=== PATIENT | male | born 1995 | race Caucasian/White ===

== ENCOUNTER 2017-05-05 11:12 | Emergency (ER) | payer SELFPAY ==
[~2017-05-05 11:12] MED LIST: Z.0.NO CURRENT MEDS
[2017-05-05 11:13] VITALS: BP 135/80; PULSE 57; RESP 24; TEMP 97.5; O2SAT 100
--- NOTE | 2017-05-05 11:30 | PD ---
Physical Exam Time Seen by Provider: 11:28 Narrative 22 y/o male complaining of epigastric/chest pain for the past few days. Complains of nausea and SOB today. Vital signs reviewed. Seen at triage desk. Awaiting bed placement. Data Data Last Documented VS Vital Signs Date Time Temp Pulse Resp B/P Pulse Ox O2 Delivery O2 Flow Rate FiO2 05/05/17 11:13 97.5 57 24 135/80 100 Room Air [facility] Medical Record Reviewed: Yes Supervised Visit with STEPHEN: Artem Whitaker May 05, 2017 11:30
--- NOTE | 2017-05-05 12:37 | PD ---
HPI Chief Complaint: Chest Pain Time Seen by Provider: 12:20 Travel History International Travel<30 days: No Contact w/Intl Traveler<30days: No Traveled to known affect area: No History of Present Illness HPI 22-year-old male came to the emergency room with history of epigastric pain. Patient says the pain has been going on for 3-4 days. He seems uncomfortable. Patient says he drinks alcohol occasionally and he drank 2 beers last night. Upon asking he said he also did marijuana and cocaine. It did not change the level of his pain. His vital signs are stable. He says he has been nauseous and dry heaving. The pain is sharp and occasionally radiates to the right upper quadrant area. Patient has never had pain like this in the past. He has been constipated mostly but had a bowel movement today and the stool color was much reconditioner than usual. [facility] Past Medical History Narrative Medical List of his past medical, surgical, social and family history is reviewed from the nursing note. ADHD: No Cancer: No Cardiovascular Problems: No Diabetes: No Diminished Hearing: No Genitourinary: No Headaches: Yes (OCCASIONAL HEADACHES) Musculoskeletal: No Neurologic: No Psychiatric: Yes Reproductive: No Respiratory: No Migraines: No Seizures: No Thyroid Disease: No Ulcer: No Past Surgical History Surgical History: No Previous Surgery Appendectomy: No Section: No Cholecystectomy: No Other Surgery: No Social History Alcohol Use: Yes (OCC) Tobacco Use: Yes Substance Use: Yes (MARIJUNANA - COCAINE) Allergies-Medications (Allergen,Severity, Reaction): Coded Allergies: No Known Allergies (Verified , 05/05/17) Comments No known drug allergies. Reported Meds & Prescriptions Reported Meds & Active Scripts Active Zofran Odt (Ondansetron Odt) 4 Mg Tab 4 Mg SL Q6HR PRN Omeprazole 20 Mg Tab 20 Mg PO DAILY Reported No Current Meds (Miscellaneous Medication) Misc Narrative Medication List of his home medications reviewed from the nursing note. Review of Systems Except as stated in HPI: all other systems reviewed are Neg Physical Exam Narrative GENERAL: Awake, alert, disheveled, poor skin hygiene, moderate distress SKIN: Focused skin assessment warm/dry. HEAD: Atraumatic. Normocephalic. EYES: Pupils equal and round. No scleral icterus. No injection or drainage. ENT: No nasal bleeding or discharge. Mucous membranes pink and moist. NECK: Trachea midline. No JVD. CARDIOVASCULAR: Regular rate and rhythm. No murmur appreciated. RESPIRATORY: No accessory muscle use. Clear to auscultation. Breath sounds equal bilaterally. GASTROINTESTINAL: Abdomen soft, epigastric tenderness on deep palpation, nondistended. Hepatic and splenic margins not palpable. MUSCULOSKELETAL: No obvious deformities. No clubbing. No cyanosis. No edema. NEUROLOGICAL: Awake and alert. No obvious cranial nerve deficits. Motor grossly within normal limits. Normal speech. PSYCHIATRIC: Appropriate mood and affect; insight and judgment normal. Data Data Last Documented VS Vital Signs Date Time Temp Pulse Resp B/P Pulse Ox O2 Delivery O2 Flow Rate FiO2 05/05/17 12:56 100 Room Air 05/05/17 12:56 14 05/05/17 11:13 97.5 57 135/80 Orders Electrocardiogram (05/05/17 12:40) Complete Blood Count With Diff (05/05/17 12:40) Comprehensive Metabolic Panel (05/05/17 12:40) Magnesium (Mg) (05/05/17 12:40) Prothrombin Time / Inr (Pt) (05/05/17 12:40) Troponin I (05/05/17 12:40) Lipase (05/05/17 12:40) Chest, Single Ap (05/05/17 12:40) Ecg Monitoring (05/05/17 12:40) Bilateral Bp Monitoring (05/05/17 12:40) Iv Access Insert/Monitor (05/05/17 12:40) Oximetry (05/05/17 12:40) Oxygen Administration (05/05/17 12:40) Sodium Chloride 0.9% Flush (Ns Flush) (05/05/17 12:45) Ed Poc Ultrasound (05/05/17 12:40) Sodium Chlor 0.9% 1000 Ml Inj (Ns 1000 M (05/05/17 12:45) Pantoprazole Inj (Protonix Inj) (05/05/17 12:45) Ondansetron Inj (Zofran Inj) (05/05/17 12:45) Labs Laboratory Tests Test 05/05/17 12:50 White Blood Count 9.2 TH/MM3 Red Blood Count 4.58 MIL/MM3 Hemoglobin 14.9 GM/DL Hematocrit 43.4 % Mean Corpuscular Volume 94.9 FL Mean Corpuscular Hemoglobin 32.7 PG Mean Corpuscular Hemoglobin 34.4 % Concent Red Cell Distribution Width 13.7 % Platelet Count 272 TH/MM3 Mean Platelet Volume 7.9 FL Neutrophils (%) (Auto) 67.8 % Lymphocytes (%) (Auto) 20.8 % Monocytes (%) (Auto) 7.5 % Eosinophils (%) (Auto) 3.0 % Basophils (%) (Auto) 0.9 % Neutrophils # (Auto) 6.2 TH/MM3 Lymphocytes # (Auto) 1.9 TH/MM3 Monocytes # (Auto) 0.7 TH/MM3 Eosinophils # (Auto) 0.3 TH/MM3 Basophils # (Auto) 0.1 TH/MM3 CBC Comment DIFF FINAL Differential Comment Prothrombin Time 11.2 SEC Prothromb Time International 1.0 RATIO Ratio Sodium Level 137 MEQ/L Potassium Level 4.2 MEQ/L Chloride Level 103 MEQ/L Carbon Dioxide Level 27.3 MEQ/L Anion Gap 7 MEQ/L Blood Urea Nitrogen 17 MG/DL Creatinine 1.01 MG/DL Estimat Glomerular Filtration 91 ML/MIN Rate Random Glucose 87 MG/DL Calcium Level 9.2 MG/DL Magnesium Level 2.2 MG/DL Total Bilirubin 0.4 MG/DL Aspartate Amino Transf 23 U/L (AST/SGOT) Alanine Aminotransferase 24 U/L (ALT/SGPT) Alkaline Phosphatase 76 U/L Troponin I LESS THAN 0.02 NG/ML Total Protein 7.5 GM/DL Albumin 4.0 GM/DL Lipase 116 U/L MDM Medical Decision Making Medical Screen Exam Complete: Yes Emergency Medical Condition: Yes Medical Record Reviewed: Yes Interpretation(s) Twelve-lead EKG was reviewed by me. Normal sinus rhythm, normal axis, bradycardia, nonspecific ST-T wave changes. Heart rate of 43 bpm. Differential Diagnosis Acute pancreatitis, acute cholecystitis, ACS, acute gastritis, PUD Narrative Course 12:57 PM awaiting for blood test results to come back. I'll do a bedside gallbladder ultrasound. Please refer to my procedure note. Was given IV fluid bolus and Zofran and IV Protonix. 1:48 PM blood test results of back and within normal limits. Chest x-ray was looked at by me and appeared to be within normal limit as well. I'll discharge him home. Procedures Procedure Narrative Emergency department right upper quadrant ultrasound was performed with patient consent. Curvilinear probe was used in the transverse and sagittal views within the right upper quadrant revealing gallbladder without obvious wall thickening, cholecystic fluid, or cholelithiasis. EKG Prior to Arrival: Yes Diagnosis Primary Impression: Acute gastritis Qualified Code: K29.20 - Acute alcoholic gastritis without hemorrhage Additional Impression: Polysubstance abuse Referrals: Primary Care Physician Additional Instructions: Follow-up with your primary care next couple days. Please return to the ER if the condition worsens or any other new concerns. You should not be drinking alcohol to you symptoms subside. Take the medication as per the prescription direction. Scripts Ondansetron Odt (Zofran Odt)4 Mg Tab4 Mg SL Q6HR PRN (Nausea/Vomiting) #20 TAB Ref 0 Prov:Zenon Kelly MD 05/05/17 Omeprazole 20 Mg Tab20 Mg PO DAILY #30 TAB Ref 0 Prov:Zenon Kelly MD 05/05/17 Disposition: 01 DISCHARGE HOME Condition: Stable Zenon Kelly MD May 05, 2017 12:37
[2017-05-05] MEDS ORDERED: SODIUM CHLORIDE 0.9% FLUSH 10 ML FLUSH IVF PRN (12:45)
[2017-05-05] MEDS ORDERED: SODIUM CHLOR 0.9% 1000 ML INJ 1,000 ML IV ONE (12:45)
[2017-05-05] MEDS ORDERED: ONDANSETRON HCL 4 MG/2 ML VIAL IV PUSH ONE (12:45)
[2017-05-05] MEDS ORDERED: PANTOPRAZOLE SODIUM 40 MG VIAL IV PUSH ONE (12:45)
[2017-05-05 12:56] VITALS: RESP 14; O2SAT 100
[2017-05-05 13:08] LABS: AUTOMATED NEUTROPHIL # 6.2 TH/MM3 (1.8-7.7); BASOPHIL # 0.1 TH/MM3 (0-0.2); BASOPHIL % 0.9 % (0.0-2.0); EOSINOPHIL # 0.3 TH/MM3 (0-0.4); HEMATOCRIT 43.4 % (39.0-51.0); HEMO FLAGS DIFF FINAL; LYMPH % 20.8 % (9.0-44.0); LYMPHOCYTE # 1.9 TH/MM3 (1.0-4.8); MEAN CELL VOLUME 94.9 FL (80.0-100.0); MEAN CORPUSCULAR HEMOGLOBIN 32.7 PG (27.0-34.0); MEAN CORPUSCULAR HGB CONC 34.4 % (32.0-36.0); MONO % 7.5 % (0.0-8.0); NEUT % 67.8 % (16.0-70.0); PLATELET COUNT 272 TH/MM3 (150-450); RED BLOOD COUNT 4.58 MIL/MM3 (4.50-5.90); RED CELL DISTRIBUTION WIDTH 13.7 % (11.6-17.2); WHITE BLOOD COUNT 9.2 TH/MM3 (4.0-11.0)
[2017-05-05 13:16] LABS: PROTHROMBIN TIME - PATIENT 11.2 SEC (9.8-11.6)
[2017-05-05 13:34] LABS: ALT (GPT) 24 U/L (12-78)
[2017-05-05 13:36] LABS: ANION GAP 7 MEQ/L (5-15); AST (GOT) 23 U/L (15-37); BICARBONATE 27.3 MEQ/L (21.0-32.0); BLOOD UREA NITROGEN 17 MG/DL (7-18); CHLORIDE 103 MEQ/L (98-107); GLOMERULAR FILTRATION RATE 91 ML/MIN (>89); MAGNESIUM 2.2 MG/DL (1.5-2.5); POTASSIUM 4.2 MEQ/L (3.5-5.1); SODIUM (NA) 137 MEQ/L (136-145)
[2017-05-05 13:39] LABS: ALKALINE PHOSPHATASE 76 U/L (45-117); TOTAL BILIRUBIN ADULT 0.4 MG/DL (0.2-1.0)
[2017-05-05] MEDS ORDERED: ZOFR4TAB3 SL (13:48)
[2017-05-05] MEDS ORDERED: OMEP20TA PO (13:48)
--- NOTE | 2017-05-05 14:28 | RADRPT ---
EXAM DATE/TIME: 05/05/2017 12:57 [place] COMPARISON: No previous studies available for comparison. INDICATIONS : Chest pain, short of breath. MEDICAL HISTORY : None. SURGICAL HISTORY : None. ENCOUNTER: Initial ACUITY: 3 days PAIN SCORE: 5/10 LOCATION: Bilateral chest FINDINGS: A single view of the chest demonstrates the lungs to be symmetrically aerated without evidence of mas s, infiltrate or effusion. The cardiomediastinal contours are unremarkable. Osseous structures are intact. CONCLUSION: Normal examination. Matthew Keller MD on May 05, 2017 at 14:27 Board Certified Radiologist. This report was verified electronically.
--- NOTE | 2017-05-06 15:00 | EKG ---
Date Performed: 05/05/2017 Time Performed: 11:36:41 PTAGE: 22 years EKG: SINUS BRADYCARDIA BORDERLINE ECG NO PREVIOUS TRACING DOCTOR: Momo Gtz Interpretating Date/Time 05/06/2017 14:58:14
== END 2017-05-05 14:29 | disposition home or self-care (01) ==
LOC: NEPD 11:12
DX: K29.20 Alcoholic gastritis without bleeding (principal); F10.10 Alcohol abuse, uncomplicated; F19.10 Other psychoactive substance abuse, uncomplicated
CPT/HCPCS: 71010; 80053; 83690; 83735; 84484; 85025; 85610; 93005; 96374; 96375; 99285; C9113; J2405; J7030